=== PATIENT | male | born 2000 | race African-American/Black ===

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

== ENCOUNTER 2019-03-14 21:21 | Emergency (ER) ==
[2019-03-14 21:32] VITALS: BP 117/82; TEMP 97.8; BMI 24.2
[2019-03-14] MEDS ORDERED: TORADOL IM STA (21:42)
--- NOTE | 2019-03-14 21:43 | ED.PDOC ---
General ED Provider: Dr. GEOFF SHIN MD Chief Complaint: Hand Laceration Stated Complaint: my hand hurts Time Seen by Physician: 21:44 Mode of Arrival: Walk-In Information Source: Patient Exam Limitations: No limitations Nursing and Triage Documentation Reviewed and Agree: Yes Does patient meet sepsis criteria?: No If yes, has appropriate treatment been initiated?: Yes System Inflammatory Response Syndrome: Not Applicable Sepsis Protocol: For patient's 13 years and over: Temp is 96.8 and below OR 101 and greater Pulse >90 BPM Resp >20/minute Acutely Altered Mental Status Are patient's symptoms suggestive of a new infection, such as: -Pneumonia -Skin, Soft Tissue -Endocarditis -UTI -Bone, Joint Infection -Implantable Device -Acute Abdominal Infection -Wound Infection -Meningitis -Blood Stream Catheter Infection -Unknown Review of Systems - Review Of Systems Constitutional: Reports: No symptoms Eyes: Reports: No symptoms Ears, Nose, Mouth, Throat: Reports: No symptoms Respiratory: Reports: No symptoms Cardiac: Reports: No symptoms GI: Reports: No symptoms : Reports: No symptoms Musculoskeletal: Reports: No symptoms Skin: Reports: No symptoms Neurological: Reports: No symptoms Endocrine: Reports: No symptoms Hematologic/Lymphatic: Reports: No symptoms All Other Systems: Reviewed and Negative Past Medical History - Past Medical History Previously Healthy: Yes Endocrine: Reports: Unknown Cardiovascular: Reports: Unknown Respiratory: Reports: Unknown Hematological: Reports: Unknown Gastrointestinal: Reports: Unknown Genitourinary: Reports: Unknown Neuro/Psych: Reports: Unknown Musculoskeletal: Reports: Unknown Cancer: Reports: Unknown - Surgical History General Surgical History: Reports: Unknown - Family History Family History: Reports: Unknown - Social History Smoking Status: Current every day smoker, Heavy tobacco smoker Hx Substance Use: No Alcohol Screening: None - Immunizations Tetanus Shot up to Date: Yes Physical Exam - Physical Exam Appearance: Well-appearing, No pain distress, Well-nourished Pain Distress: Moderate Eyes: JESSICA, EOMI, Conjunctiva clear ENT: Ears normal, Nose normal, Oropharynx normal Respiratory: Airway patent, Breath sounds clear, Breath sounds equal, Respirations nonlabored Cardiovascular: RRR, Pulses normal, No rub, No murmur GI/: Soft, Nontender, No masses, Bowel sounds normal, No Organomegaly Musculoskeletal: Limited ROM, Limited strength, Edema (right hand 5th MCP) Skin: Warm, Dry, Normal color Neurological: Sensation intact, Motor intact, Reflexes intact, Cranial nerves intact, Alert, Oriented Psychiatric: Affect appropriate, Mood appropriate Critical Care Note - Critical Care Note Total Time (mins): 0 Course - Course Orders, Labs, Meds: Orders Category Date Time Status Ketorolac Tromethamine [Toradol] MEDS 03/14/19 21:42 Discontinued 60 mg IM ONCE STA HAND, RIGHT 2 VIEWS Stat RADS 03/14/19 21:42 Taken Medications Discontinued Medications Generic Name Dose Route Start Last Admin Trade Name Sigifredo PRN Reason Stop Dose Admin Ketorolac Tromethamine 60 mg 03/14/19 21:42 03/14/19 21:51 Toradol IM 03/14/19 21:43 60 mg ONCE STA Administration Vital Signs: Temp Pulse Resp BP Pulse Ox 03/14/19 21:22 97.8 F 72 20 117/82 99 Departure - Departure Time of Disposition: 22:15 Disposition: HOME SELF-CARE Discharge Problem: Contusion of hand, right Qualifiers: Encounter type: initial encounter Qualified Code(s): S60.221A - Contusion of right hand, initial encounter Condition: Good Pt referred to PMD for follow-up: Yes IPMP verified?: No Allergies/Adverse Reactions: Allergies grass pollen Adverse Reaction (Verified 03/14/19 21:32) peanut Adverse Reaction (Verified 03/14/19 21:32) red dye Adverse Reaction (Verified 03/14/19 21:32) shellfish derived Adverse Reaction (Verified 03/14/19 21:32) Home Medications: Ambulatory Orders 1 [No Reported Medications] 08/20/18 Transfer Form Completed: No Disposition Discussed With: Patient
--- NOTE | 2019-03-15 06:36 | DI ---
EXAM: Right hand three view. Three view. HISTORY: Pain. Injury. COMPARISON: None. FINDINGS: AP, lateral and oblique views of the right hand. There are no acute or healing fractures. There are no lytic or blastic lesions. Soft tissues are normal. Bone mineralization is normal. T here are no significant degenerative changes. IMPRESSION: Normal right hand.
== END 2019-03-14 22:10 | disposition home or self-care (01) ==
LOC: ED 21:21
DX: S60.221A Contusion of right hand, initial encounter (principal); F17.210 Nicotine dependence, cigarettes, uncomplicated
CPT/HCPCS: 96372; 99282